=== PATIENT | male | born 1995 | race Asian ===

== ENCOUNTER 2017-08-20 12:25 | Emergency (ER) | payer OTHER ==
--- NOTE | 2017-08-20 15:11 | RAD ---
HISTORY: Subacute trauma, headache COMPARISONS: None TECHNIQUE: Multiple contiguous axial CT scans were obtained of the head without intravenous contrast. FINDINGS: HEMORRHAGE/INFARCT: There is no hemorrhage or acute infarct. MASSES/SHIFT: There is no mass or shift. EXTRA-AXIAL SPACES: There are no extra-axial fluid collections. SULCI AND VENTRICLES: The sulci and ventricles are normal in size and position for the patient's stated age. CEREBRUM: There are no focal parenchymal abnormalities. BRAINSTEM: There are no focal parenchymal abnormalities. CEREBELLUM: There are no focal parenchymal abnormalities. VESSELS: The vessels are grossly normal. PARANASAL SINUSES: The paranasal sinuses are clear. ORBITS: The orbits are unremarkable. BONES AND SOFT TISSUE: No bone or soft tissue abnormalities are noted. OTHER: None IMPRESSION: NO ACUTE INTRACRANIAL PATHOLOGY.
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
[2017-08-20 15:37] VITALS: BP 144/77
== END 2017-08-20 15:25 | disposition home or self-care (01) ==
LOC: UCEAST 12:25
DX: S00.01XA Abrasion of scalp, initial encounter (principal); W18.09XA Striking against other object with subsequent fall, initial encounter; Y93.9 Activity, unspecified; Y92.9 Unspecified place or not applicable; R51 Headache
CPT/HCPCS: 70450; 99201; G0463

== ENCOUNTER 2018-09-11 02:21 | Emergency (ER) | payer OTHER ==
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
[2018-09-11 04:48] VITALS: BP 140/81
== END 2018-09-11 04:47 | disposition home or self-care (01) ==
LOC: ED 02:21
DX: S01.81XA Laceration without foreign body of other part of head, initial encounter (principal); Y00.XXXA Assault by blunt object, initial encounter; Y92.9 Unspecified place or not applicable
CPT/HCPCS: 12011; 99282